=== PATIENT | male | born 1985 | race Caucasian/White ===

== ENCOUNTER 2019-09-12 15:40 | Outpatient (CLI) | payer BC, SELFPAY ==
--- NOTE | 2019-09-12 15:55 | XRR_ITS ---
PROCEDURE INFORMATION: Exam: XR Chest, 2 Views Exam date and time: 09/12/2019 4:08 PM Age: 34 years old Clinical indication: Other: Low o2 saturation TECHNIQUE: Imaging protocol: XR of the chest Views: 2 views. COMPARISON: No relevant prior studies available. FINDINGS: Lungs: Unremarkable. No consolidation. Pleural space: Unremarkable. No pleural effusion. No pneumothorax. Heart/Mediastinum: Unremarkable. No cardiomegaly. Bones/joints: Unremarkable. XR/XR chest 2V* [id number] IMPRESSION: No acute radiographic findings.
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
== END 2019-09-12 15:41 | disposition home or self-care (01) ==
PROVIDERS: Visit Provider Registered Nurse
DX: S06.0X1A Concussion with loss of consciousness of 30 minutes or less, initial encounter (principal); X58.XXXA Exposure to other specified factors, initial encounter; R09.02 Hypoxemia
CPT/HCPCS: 70450; 71046

== ENCOUNTER → 2019-09-15 10:33 | Outpatient (BNVA) | payer BC, SELFPAY | PROVIDERS: Visit Provider Registered Nurse | DX: R09.02 Hypoxemia (principal); S06.0X9A Concussion with loss of consciousness of unspecified duration, initial encounter; X58.XXXA Exposure to other specified factors, initial encounter | CPT/HCPCS: 80053; 85025 ==

== ENCOUNTER → 2019-09-22 08:30 | Outpatient (BNVA) | payer BC, SELFPAY | PROVIDERS: Visit Provider Registered Nurse | DX: D72.829 Elevated white blood cell count, unspecified (principal); J15.9 Unspecified bacterial pneumonia | CPT/HCPCS: 85025 ==

== ENCOUNTER → 2019-09-25 08:11 | Outpatient (BNVA) | payer BC, SELFPAY | PROVIDERS: Visit Provider Registered Nurse | DX: D72.829 Elevated white blood cell count, unspecified (principal) | CPT/HCPCS: 85025 ==